=== PATIENT | female | born 1960 | race Hispanic/Latino ===

== ENCOUNTER 2024-03-25 03:05 | Emergency (ER) | payer BC, OTHER, SELFPAY ==
[~2024-03-25] VITALS: Ht 165.1 cm; Wt 83.5 kg
[2024-03-25] MEDS: acetaMINOPHEN 500 MG TABLET PO ONE (03:22)
[2024-03-25] MEDS ORDERED: NAPR-1196 PO (04:28)
[2024-03-25 04:37] VITALS: BP 134/74; PULSE 69; RESP 18; O2SAT 98
== END 2024-03-25 04:39 | disposition home or self-care (01) ==
LOC: EDH 03:05
DX: S93.492A Sprain of other ligament of left ankle, initial encounter (principal); M25.552 Pain in left hip; Z98.51 Tubal ligation status; W01.0XXA Fall on same level from slipping, tripping and stumbling without subsequent striking against object, initial encounter; Y93.01 Activity, walking, marching and hiking; Y92.89 Other specified places as the place of occurrence of the external cause; Y99.8 Other external cause status
CPT/HCPCS: 72100; 73522; 73610

== ENCOUNTER → 2024-05-30 | Outpatient (CLI) | payer SELFPAY ==
[~2024-05-30] MED LIST: NAPR-1196 PO
== END | disposition home or self-care (01) ==
LOC: RAH 08:47
PROVIDERS: ATTEND Nurse Practitioner Family
DX: M25.572 Pain in left ankle and joints of left foot (principal)
CPT/HCPCS: 73610